=== PATIENT | female | born 1955 | race Caucasian/White ===

== ENCOUNTER 2016-10-27 16:17 | Inpatient (IN) | payer BC ==
[~2016-10-27] VITALS: Ht 170.2 cm; Wt 60.4 kg
[2016-11-11] MEDS: PCA - TOTAL MG MORPHINE DELIVERED PER SHIFT SCH (22:00)
[2016-11-12] VITALS (7 sets, daily range): BP systolic 111–138; BP diastolic 67–80; PULSE 61–77; RESP 16–20; TEMP 97–98.6; O2SAT 97–100
--- NOTE | 2016-11-12 07:31 | PD.HP.UP ---
H&P Update Note The Pre-Admit History and Physical Examination regarding the above named patient was reviewed (including, but not limited to, vital signs, heart, lungs, co-morbid conditions), and upon re-examination it is noted that: the patient's condition has not significantly changed since the last examination. Grisel Mehta MD Nov 12, 2016 07:31
[2016-11-12] MEDS ORDERED: LISI-519 PO (07:32)
[2016-11-12] MEDS ORDERED: LEVO100T5 PO (07:32)
[2016-11-12] MEDS ORDERED: ZOLO100T PO (07:32)
[2016-11-12] MEDS ORDERED: MULT1CHW29 PO (07:34)
[2016-11-12] MEDS ORDERED: ASPI1TAB69 PO (07:35)
[2016-11-12] MEDS ORDERED: SODIUM CHLORID 0.9% 500 ML IV SCH (08:15)
[2016-11-12] MEDS ORDERED: METOPROLOL TARTRATE 25 MG TAB PO PRN (08:15)
[2016-11-12] MEDS ORDERED: INSULIN HUMAN REGULAR 1,000 UNITS/10 ML VIAL SQ PRN (08:15)
[2016-11-12] MEDS ORDERED: LACTATED RINGER'S 1000 ML IV SCH (08:15)
[2016-11-12] MEDS ORDERED: metroNIDAZOLE 500 MG INJ 100 ML IV ONE (08:39)
[2016-11-12] MEDS ORDERED: ceFAZolin 2 GM PREMIX 50 ML ONE (08:39)
[2016-11-12] MEDS ORDERED: DEXT 5%-NACL 0.9% 1000 ML INJ 1,000 ML IV SCH (08:45)
[2016-11-12] MEDS ORDERED: ACETAMINOPHEN 1000 MG/100 ML VIAL IV ONE (08:45)
[2016-11-12] MEDS ORDERED: ceFAZolin 2 GM PREMIX 50 ML IV SCH (08:45)
[2016-11-12] MEDS ORDERED: METRONIDAZOLE 500 MG/100 ML ISONTONIC SOLN IV SCH (08:45)
[2016-11-12] MEDS ORDERED: DEXAMETHASONE SOD PHOS 4 MG/ML VIAL ONE (09:00)
[2016-11-12] MEDS ORDERED: MIDAZOLAM HCL 2 MG/2 ML VIAL ONE (09:00)
[2016-11-12] MEDS ORDERED: ePHEDrine/NS 25 MG/5 ML SYR IV ONE (09:01)
[2016-11-12] MEDS ORDERED: NEOSTIGMINE 3 MG/3 ML SYR IV ONE (09:01)
[2016-11-12] MEDS ORDERED: PROPOFOL 200 MG/20 ML AMP IV ONE (09:01)
[2016-11-12] MEDS ORDERED: NORMOSOL R INJ 3,000 ML IV ONE (09:02)
[2016-11-12] MEDS ORDERED: ONDANSETRON HCL 4 MG/2 ML VIAL IV PUSH ONE (09:02)
--- NOTE | 2016-11-12 10:36 | HHI.PR ---
Immediate Post Op Note Procedure Date: Nov 12, 2016 Pre Op Diagnosis: (1) Rectal prolapse Post Op Diagnosis: (1) Rectal prolapse Surgeon: Nolan Cevallos Waterproofer Helper(s): None Procedure: Cystoscopy and placement of bilateral ureteral catheters Additional Information: Indication for procedure: Consult intraoperatively to place bilateral ureteral catheters to aid in visualization of this patient's ureters during her colorectal procedure. Urologic surgery procedures in detail: Concurrent with Dr. Mehta, I proceeded with cystoscopy and placement of bilateral ureteral catheters as follows: Initially cystoscopic evaluation was performed utilizing the rigid cystoscope with the 30 lens and 20 Estonian sheath. Both right and left ureteral offices were correct anatomic position effluxing clear yellow urine. There were no bladder mucosal lesions, calculi or diverticula formation. I then proceeded with passing a sensor 0.35 wire of the patient's left ureter until a small amount of resistance was met. I then placed a 6 Estonian open- ended ureteral catheter over the wire 25 cm in a cephalad direction. Next the wire was withdrawn and we introduced through a secondary site via the cystoscope and the contralateral side was similarly accomplished. The guidewire was withdrawn, the bladder drained of all irrigant fluid and the cystoscope removed. A 16 Estonian 10 cc Marinelli catheter was placed and both ureteral catheters were anchored to the Marinelli via a connector. All catheters were then placed to gravity drainage. This completes urologic surgery portion of combined procedures on this patient. Anesthesia: General Nolan Cevallos MD Nov 12, 2016 10:36
[2016-11-12] MEDS ORDERED: SODIUM CHLORIDE 0.9% FLUSH 5 ML FLUSH IVF PRN (13:15)
[2016-11-12] MEDS ORDERED: ACETAMINOPHEN 325 MG TAB PO PRN (13:15)
[2016-11-12] MEDS ORDERED: BENZOCAINE 6 MG/MENTHOL 10 MG LOZENGE SUCK-ON PRN (13:15)
[2016-11-12] MEDS ORDERED: ENALAPRILAT 1.25 MG/ML VIAL IV PRN (13:15)
[2016-11-12] MEDS ORDERED: POTASSIUM CHLOR 40 MEQ PREMIX 100 ML IV PRN (13:15)
[2016-11-12] MEDS ORDERED: ONDANSETRON HCL 4 MG/2 ML VIAL IV PRN (13:15)
[2016-11-12] MEDS ORDERED: ACETAMINOPHEN/HYDROcodone 325 MG/5 MG TAB PO PRN (13:15)
[2016-11-12] MEDS ORDERED: NALOXONE HCL 0.4 MG/ML AMP IV PRN (13:15)
[2016-11-12] MEDS ORDERED: ENALAPRILAT 2.5 MG/2 ML VIAL IV PRN (13:15)
[2016-11-12] MEDS ORDERED: POTASSIUM CHLOR 20 MEQ PREMIX 100 ML IV PRN (13:15)
[2016-11-12] MEDS ORDERED: KETOROLAC TROMETHAMINE 30 MG/ML (IVP) VIAL IVP PRN (13:15)
[2016-11-12] MEDS ORDERED: Post-op Orders (for Pharmacy) MISC XX ONE (13:24)
[2016-11-12] MEDS ORDERED: *morphine SULFATE 8 MG/ML PERIprocedure ONLY ONE ×3 (13:40→14:10)
[2016-11-12] MEDS ORDERED: *ONDANSETRON 4 MG VIAL PERIprocedural Use ONLY ONE (13:43)
[2016-11-12] MEDS ORDERED: fentaNYL CITRATE 250 MCG/5 ML AMP ONE (13:44)
[2016-11-12] MEDS: D5-NS + KCL 20 MEQ INJ 1,000 ML IV SCH (14:00)
[2016-11-12] MEDS: SODIUM CHLORIDE 0.9% FLUSH 5 ML FLUSH IVF SCH ×2 (14:00→21:00)
[2016-11-12] MEDS: PCA - TOTAL MG MORPHINE DELIVERED PER SHIFT SCH (14:00)
[2016-11-12] MEDS: MORPHINE SULFATE 30 MG/30 ML PCA IV SCH ×2 (14:03→23:58)
[2016-11-12] MEDS ORDERED: *PROMETHAZINE 25 MG/ML VIAL PERIprocedural use ONLY ONE (14:12)
[2016-11-12 14:19] LABS: AUTOMATED NEUTROPHIL # 8.3 TH/MM3 (1.8-7.7); BASOPHIL % 0.2 % (0.0-2.0); EOSINOPHIL % 0.1 % (0.0-4.0); HEMATOCRIT 34.4 % (35.0-46.0); HEMO FLAGS DIFF FINAL; LYMPH % 13.2 % (9.0-44.0); LYMPHOCYTE # 1.3 TH/MM3 (1.0-4.8); MEAN CELL VOLUME 89.9 FL (80.0-100.0); MEAN CORPUSCULAR HEMOGLOBIN 30.6 PG (27.0-34.0); MEAN CORPUSCULAR HGB CONC 34.1 % (32.0-36.0); MONO % 2.3 % (0.0-8.0); NEUT % 84.2 % (16.0-70.0); PLATELET COUNT 231 TH/MM3 (150-450); RED BLOOD COUNT 3.83 MIL/MM3 (4.00-5.30); RED CELL DISTRIBUTION WIDTH 12.9 % (11.6-17.2); WHITE BLOOD COUNT 9.9 TH/MM3 (4.0-11.0)
[2016-11-12 14:30] LABS: BICARBONATE 23.7 MEQ/L (21.0-32.0); POTASSIUM 3.2 MEQ/L (3.5-5.1)
[2016-11-12] MEDS ORDERED: DO NOT ADM ANY ANTICOAGULANT DRUGS XX PRN (14:30)
[2016-11-12] MEDS ORDERED: *HYDROmorphone PF 1 MG VIAL PERIprocedural Use ONLY ONE (14:38)
[2016-11-12 14:43] LABS: CALCIUM-PROTEIN CORRECTED 7.6 MG/DL (8.5-10.1)
--- NOTE | 2016-11-12 16:04 | EKG ---
Date Performed: 11/12/2016 Time Performed: 08:15:04 PTAGE: 61 years EKG: Sinus rhythm WITH SINUS ARRHYTHMIA MODERATE ST DEPRESSION ABNORMAL ECG NO PREVIOUS TRACING DOCTOR: Osmin Hurst Interpretating Date/Time 11/12/2016 16:03:00
[2016-11-12] MEDS: metroNIDAZOLE 500 MG INJ 100 ML IV SCH (18:31)
[2016-11-12] MEDS: ACETAMINOPHEN/HYDROcodone 325 MG/5 MG TAB PO PRN (21:53)
[2016-11-13] VITALS (7 sets, daily range): BP systolic 104–115; BP diastolic 60–68; PULSE 54–95; RESP 16–21; TEMP 96.8–98.1; O2SAT 95–99
[2016-11-13] MEDS: metroNIDAZOLE 500 MG INJ 100 ML IV SCH ×2 (02:42→09:32)
[2016-11-13] MEDS: D5-NS + KCL 20 MEQ INJ 1,000 ML IV SCH ×5 (02:42→20:26)
[2016-11-13] MEDS: diphenhydrAMINE HCL 50 MG/ML VIAL IV PRN (02:54)
[2016-11-13 04:52] LABS: AUTOMATED NEUTROPHIL # 6.4 TH/MM3 (1.8-7.7); BASOPHIL % 0.3 % (0.0-2.0); EOSINOPHIL # 0.1 TH/MM3 (0-0.4); EOSINOPHIL % 1.1 % (0.0-4.0); HEMATOCRIT 32.6 % (35.0-46.0); HEMO FLAGS DIFF FINAL; LYMPH % 28.8 % (9.0-44.0); MEAN CELL VOLUME 90.8 FL (80.0-100.0); MEAN CORPUSCULAR HEMOGLOBIN 30.2 PG (27.0-34.0); MEAN CORPUSCULAR HGB CONC 33.3 % (32.0-36.0); MONO % 8.2 % (0.0-8.0); NEUT % 61.6 % (16.0-70.0); PLATELET COUNT 212 TH/MM3 (150-450); RED BLOOD COUNT 3.59 MIL/MM3 (4.00-5.30); RED CELL DISTRIBUTION WIDTH 12.9 % (11.6-17.2); WHITE BLOOD COUNT 10.5 TH/MM3 (4.0-11.0)
[2016-11-13 05:11] LABS: BICARBONATE 26.8 MEQ/L (21.0-32.0)
[2016-11-13 05:28] LABS: CALCIUM-PROTEIN CORRECTED 8.1 MG/DL (8.5-10.1)
[2016-11-13] MEDS: PCA - TOTAL MG MORPHINE DELIVERED PER SHIFT SCH ×3 (06:00→22:00)
[2016-11-13] MEDS: SODIUM CHLORIDE 0.9% FLUSH 5 ML FLUSH IVF SCH ×2 (09:00→20:27)
[2016-11-13] MEDS: PANTOPRAZOLE SODIUM 40 MG VIAL IVP SCH (09:31)
[2016-11-13] MEDS: MORPHINE SULFATE 30 MG/30 ML PCA IV SCH ×2 (09:53→20:25)
[2016-11-13] MEDS: HEPARIN SODIUM - SQ 10,000 UNITS/ML VIAL SQ SCH (14:15)
[2016-11-13] MEDS: ACETAMINOPHEN/HYDROcodone 325 MG/5 MG TAB PO PRN (20:26)
[2016-11-14] MEDS: HEPARIN SODIUM - SQ 10,000 UNITS/ML VIAL SQ SCH ×3 (01:00→23:56)
[2016-11-14 04:00] VITALS: BP 118/56; PULSE 73; RESP 20; TEMP 96.2; O2SAT 94
[2016-11-14] MEDS: PCA - TOTAL MG MORPHINE DELIVERED PER SHIFT SCH ×3 (04:20→22:00)
[2016-11-14] MEDS: ACETAMINOPHEN/HYDROcodone 325 MG/5 MG TAB PO PRN ×3 (04:28→19:27)
[2016-11-14] MEDS: PANTOPRAZOLE SODIUM 40 MG VIAL IVP SCH (07:58)
[2016-11-14] MEDS: SODIUM CHLORIDE 0.9% FLUSH 5 ML FLUSH IVF SCH ×2 (07:58→21:00)
[2016-11-14] MEDS: D5-NS + KCL 20 MEQ INJ 1,000 ML IV SCH ×3 (07:58→21:39)
[2016-11-14 08:00] VITALS: BP 121/62; PULSE 64; RESP 17; TEMP 98.5; O2SAT 96
[2016-11-14] MEDS: MORPHINE SULFATE 30 MG/30 ML PCA IV SCH ×2 (08:18→22:16)
[2016-11-14 11:20] LABS: AUTOMATED NEUTROPHIL # 6.5 TH/MM3 (1.8-7.7); BASOPHIL % 0.3 % (0.0-2.0); EOSINOPHIL # 0.1 TH/MM3 (0-0.4); EOSINOPHIL % 1.3 % (0.0-4.0); HEMATOCRIT 31.4 % (35.0-46.0); HEMO FLAGS DIFF FINAL; LYMPH % 28.6 % (9.0-44.0); LYMPHOCYTE # 3.1 TH/MM3 (1.0-4.8); MEAN CELL VOLUME 90.4 FL (80.0-100.0); MEAN CORPUSCULAR HEMOGLOBIN 30.8 PG (27.0-34.0); MEAN CORPUSCULAR HGB CONC 34.1 % (32.0-36.0); MONO % 9.6 % (0.0-8.0); NEUT % 60.2 % (16.0-70.0); PLATELET COUNT 198 TH/MM3 (150-450); RED BLOOD COUNT 3.48 MIL/MM3 (4.00-5.30); RED CELL DISTRIBUTION WIDTH 12.5 % (11.6-17.2); WHITE BLOOD COUNT 10.8 TH/MM3 (4.0-11.0)
[2016-11-14 12:00] VITALS: BP 149/67; PULSE 65; RESP 17; TEMP 98.3; O2SAT 97
[2016-11-14 12:06] LABS: BICARBONATE 28.5 MEQ/L (21.0-32.0); POTASSIUM 3.6 MEQ/L (3.5-5.1)
[2016-11-14 12:24] LABS: CALCIUM-PROTEIN CORRECTED 8.2 MG/DL (8.5-10.1)
[2016-11-14 14:14] VITALS: O2SAT 93
[2016-11-14 16:00] VITALS: BP 130/64; PULSE 58; RESP 17; TEMP 96.5; O2SAT 98
[2016-11-14 20:00] VITALS: BP 125/74; PULSE 87; RESP 20; TEMP 97.6; O2SAT 94
[2016-11-14] MEDS: diphenhydrAMINE HCL 50 MG/ML VIAL IV PRN (21:59)
[2016-11-15] VITALS: BP 130/65; PULSE 83; RESP 21; TEMP 99.2; O2SAT 96
[2016-11-15] MEDS: ACETAMINOPHEN/HYDROcodone 325 MG/5 MG TAB PO PRN ×3 (04:29→17:48)
[2016-11-15] MEDS: D5-NS + KCL 20 MEQ INJ 1,000 ML IV SCH (04:29)
[2016-11-15] MEDS: PCA - TOTAL MG MORPHINE DELIVERED PER SHIFT SCH ×2 (04:30→12:07)
[2016-11-15 05:05] LABS: BASOPHIL % 0.2 % (0.0-2.0); EOSINOPHIL # 0.2 TH/MM3 (0-0.4); EOSINOPHIL % 1.8 % (0.0-4.0); HEMATOCRIT 31.6 % (35.0-46.0); HEMO FLAGS DIFF FINAL; LYMPH % 23.4 % (9.0-44.0); LYMPHOCYTE # 2.5 TH/MM3 (1.0-4.8); MEAN CELL VOLUME 90.2 FL (80.0-100.0); MEAN CORPUSCULAR HEMOGLOBIN 31.1 PG (27.0-34.0); MEAN CORPUSCULAR HGB CONC 34.5 % (32.0-36.0); MONO % 9.5 % (0.0-8.0); NEUT % 65.1 % (16.0-70.0); PLATELET COUNT 203 TH/MM3 (150-450); RED CELL DISTRIBUTION WIDTH 12.7 % (11.6-17.2); WHITE BLOOD COUNT 10.8 TH/MM3 (4.0-11.0)
[2016-11-15 05:16] VITALS: RESP 18
[2016-11-15 05:27] LABS: BICARBONATE 27.3 MEQ/L (21.0-32.0); POTASSIUM 3.6 MEQ/L (3.5-5.1)
[2016-11-15 07:29] VITALS: BP 129/63; PULSE 57; RESP 18; TEMP 97.1; O2SAT 97
[2016-11-15] MEDS: SODIUM CHLORIDE 0.9% FLUSH 5 ML FLUSH IVF SCH (09:00)
[2016-11-15] MEDS: PANTOPRAZOLE SODIUM 40 MG VIAL IVP SCH (09:26)
--- NOTE | 2016-11-15 11:32 | MP ---
cc: SUMA TAYLOR M.D., MARTHA, MD DATE OF SURGERY November 12, 2016 PREOPERATIVE DIAGNOSIS Rectal prolapse. POSTOPERATIVE DIAGNOSES 1. Rectal prolapse. 2. Adhesions. PROCEDURE 1. Laparoscopic lysis of adhesions. 2. Robotic rectosigmoid resection. 3. Rectopexy. SURGEON Tyson WRAP TURNER Gus ANESTHESIA General per ET tube. ESTIMATED BLOOD LOSS 100 cc. OPERATIVE INDICATIONS The patient is a 61-year-old female with symptomatic rectal prolapse. OPERATIVE FINDINGS Lax anal aperture with extremely redundant sigmoid colon, as well as a fairly significant redundancy of her transverse colon. The gallbladder was not visualized. The uterus and ovaries were absent. OPERATIVE COURSE The patient was brought to the operating room, and placed in the supine position. After induction of general anesthesia, the patient was placed in Taran stirrups and all bony prominences were carefully padded. Dr. Cevallos then came in and performed cystoscopy and placement of bilateral ureteral catheters, please see his operative note for details. A site was chosen for the camera, being located 2 cm to the right of the umbilicus. A 10/12 port was placed at this location, under direct vision using the laparoscope. CO2 insufflation was then started and there was nothing noted that would preclude the robotic approach. She was noted to have a few adhesions down to the left lower quadrant but nothing that would keep us from finishing the robotic approach. The remainder of the trocars were then placed as noted. The #1, a 10/12 trocar, was placed in the right lower quadrant just inside the anterior superior iliac spine. The assist port was placed under the right costal margin, equal distance between the camera port and the #1 port. The #3 port was placed in the left anterior axillary line, in line with the umbilicus. The #2 port, an 8 da Sampson, was placed in the left midclavicular line, on the umbilical line. The patient was hydroplaned with the head down and slightly to the right and the small bowel was brought up and out of the pelvis. The patient was immediately noted have massively redundant sigmoid colon and the transverse colon was noted to be fairly redundant as well. This was adherent down to the left lower quadrant. These adhesions were carefully dissected free using electrocautery until we were able to take the transverse colon and reverse it up into the upper peritoneal cavity. The robot was then docked. The sigmoid colon was then retracted down and to the left, and a window in the mesentery on the right was opened. Dissection continued in this plane posterior to the vessels, until the left ureter was clearly identified and swept away from the specimen. A window was then made around the vessels, and a white load Mccool Endostapler was placed across the vasculature at this level. The stapler was closed, held for 30 seconds, fired and removed. Dissection then continued posteriorly, down to the level of the mid-rectum and up and around the right side. The adhesions on the left side had been previously removed with the laparoscope. The sigmoid colon was retracted to the right and the left lateral peritoneal attachments were dissected free down to level of the mid-rectum as well. Eventually we had full mobility of the distal descending, sigmoid colon and proximal and mid-rectum. At this point, a sponge stick was placed in the rectum, and a site was chosen for division of the rectum where it came up nicely to just below the sacral promontory to allow a nice rectopexy and yet a good resection. The mesentery at this level was divided using the harmonic scalpel and the bowel was divided using the Mccool Endostapler, blue load. At this point the 33 EEA stapler was advanced to the anus and up to the rectal stump but did not lie in a good orientation, so I did elect to dissect back an additional 4-5 cm. The mesentery was dissected back an additional 4-5 cm and a reload of the Mccool Endostapler placed across the bowel and closed, held for 30 seconds, fired and removed. The small section of tissue was then removed through the #1 port. The stapler was then advanced again through the anus, and up to the rectal stump, and lay nicely without twisting in a nice orientation. The proximal bowel was brought down and it lay nicely against the proposed anastomosis area without difficulty. All dissection beds were examined. She was noted to have quite a bit of generalized oozing throughout the peritoneal cavity and the robot was undocked. An 8-10 cm transverse incision was made in the suprapubic area, just along the midportion of her previous incision. Using electrocautery, dissection was carried down to the fascia of the anterior abdominal wall which was split. The medial fibers of the rectus abdominis muscles were split, and the posterior fascia/peritoneum was then split the length of the skin incision. A wound retractor was then placed and the proximal stapled end of the bowel was brought up and out through the wound. A site was then chosen for proximal division of the bowel, where it came down nicely to the previous incision. The mesentery at this level was serially divided and ligated using 0 Vicryl ties and a pursestring stapling device was placed across the bowel at this level. The distal bowel was occluded with a Magali clamp and the bowel was divided. The specimen was taken to a back table where it was laid open and no abnormalities were confirmed. The anvil was then placed into the cut end of the bowel, and the previously placed pursestring suture was secured. The bowel, with the anvil, was then reduced back into the peritoneal cavity and the sacral promontory was visualized. A small amount of fibrofatty tissue was cleared from the sacral promontory. The rectopexy sutures were placed as follows: Using a #2-0 Prolene going through the rectal mesentery on the left, through the sacral promontory and back through the mesentery. The suture was then held without tying, using a hemostat. A second suture was placed using 0 Vicryl suture in basically the same conformation. On the right side the Prolene suture was placed in an identical fashion. However, there was noted to be a small hematoma in the rectal mesentery on this side. This was watched for quite awhile. It did not continue to grow and appeared stable throughout the rest of the case. I elected, however, not to place my second Vicryl suture on the right. These sutures were then held while the anastomosis was completed. The 33 EEA stapler was advanced through the anal opening up to the rectal stump without difficulty. The spike was advanced just anterior to the staple line. The anvil was then into the spike, being careful that the bowel was not twisted. The stapler was then closed, being careful not to incorporate any of our rectopexy sutures. The stapler was then held for 30 seconds, fired and removed thus creating an enteroenterotomy. The enterotomy appeared pink and healthy circumferentially and both anastomotic rings were complete. A small amount of warm normal saline was placed into the pelvis and the proximal bowel was occluded with digital pressure. Air was insufflated into the rectum until gentle tension was noted on the anastomosis, with no sign of any leakage noted. The air was desufflated to the extent possible and the saline was suctioned out of the pelvis. Due to her oozing, Maykel was also dusted round in the pelvis posteriorly. Rectopexy sutures were then secured and the bowel lay nicely without tension in a nice orientation, and without extra length. The posterior fascia of the anterior abdominal wall was closed in a running fashion using #1 PDS and the anterior fascia of the anterior abdominal wall closed in running fashion using #1 PDS. The CO2 insufflation was resumed. The fascia at the 10/ 12 trocar site in the right lower quadrant was then closed using the CrossBow device and 0 Vicryl suture. The wounds were copiously irrigated with warm normal saline, and the remainder of the ports were removed after the CO2 was removed from the peritoneal cavity. The skin at the suprapubic incision was closed in a running subcuticular fashion using 3-0 Vicryl and the trocar site skin was closed in an interrupted subcuticular fashion with 3-0 Vicryl. Steri-Strips and sterile dressing was then applied. The right ureteral catheter was then removed. All sponge, needle and sponge counts were correct and the patient was returned to the Post-Anesthesia Care Unit in stable condition. MD SHARON Bingham/NEWTON /1:09 PM /10:59 AM YUNIER
[2016-11-15 12:00] VITALS: BP 110/74; PULSE 65; RESP 17; TEMP 97.7; O2SAT 97
[2016-11-15] MEDS: MORPHINE SULFATE 30 MG/30 ML PCA IV SCH (12:05)
[2016-11-15] MEDS: HEPARIN SODIUM - SQ 10,000 UNITS/ML VIAL SQ SCH (12:08)
--- NOTE | 2016-11-15 13:42 | HHI.PR ---
Subjective Remarks POD#3 robotic resection rectopexy Comfortable, hungry Objective Vital Signs Date Time Temp Pulse Resp B/P Pulse Ox O2 Delivery O2 Flow Rate FiO2 11/15/16 12:00 97.7 65 17 110/74 97 11/15/16 07:29 97.1 57 18 129/63 97 11/15/16 05:16 18 11/15/16 04:30 18 11/15/16 00:00 99.2 83 21 130/65 96 11/14/16 22:16 18 11/14/16 22:00 18 11/14/16 20:00 97.6 87 20 125/74 94 11/14/16 16:00 96.5 58 17 130/64 98 11/14/16 14:14 93 11/14/16 14:00 18 I/O 11/14/16 11/14/16 11/14/16 11/15/16 11/15/16 11/15/16 07:00 15:00 23:00 07:00 15:00 23:00 Intake Total 867 ml 876 ml 1037 ml 732 ml 689 ml Output Total 2400 ml 1400 ml 1200 ml Balance -1533 ml 876 ml -363 ml -468 ml 689 ml Intake Oral 120 ml 480 ml 120 ml IV Total 747 ml 876 ml 557 ml 612 ml 689 ml Output Urine Total 2400 ml 1400 ml 1200 ml # Bowel Movements 0 1 0 Result Diagram: 11/15/16 0348 11/15/16 0348 Objective Remarks soft, nondistended, mildly tender wounds clean Assessment and Plan Assessment and Plan Doing well Home today Grisel Mehta MD Nov 15, 2016 13:42
[2016-11-15] MEDS ORDERED: HYDR-3516 PO (13:44)
--- NOTE | 2017-03-06 21:25 | MD ---
cc: SUMA TAYLOR M.D. ADMISSION DATE: 11/12/2016 DISCHARGE DATE: 11/15/2016 ADMISSION DIAGNOSIS Rectal prolapse. DISCHARGE DIAGNOSIS: Rectal prolapse. PROCEDURES PERFORMED: 1. Cystoscopy with placement of bilateral ureteral catheters. 2. Laparoscopic lysis of adhesions. 3. Robotic rectosigmoid resection. 4. Rectopexy. HOSPITAL COURSE: The patient is a 61-year-old female with symptomatic rectal prolapse. She was admitted to the hospital on November 12, 2016 after an outpatient bowel prep. She underwent the above-named procedures. Intraoperative findings included a lax anal aperture with extremely redundant sigmoid colon, as well as a fairly significant redundancy of transverse colon. Postoperatively the patient did well with rapid return of bowel and bladder function. She was discharged to home on November 15, 2016 with instructions for follow-up with myself in the office. Final pathology showed rectosigmoid colon with chronic inflammation. MD SHARON Bingham/DEYANIRA /1:24 PM /9:23 PM MTDBradly
== END 2016-11-15 18:01 | disposition home or self-care (01) | DRG 330 ==
LOC: HSDI 11-12 06:33 → HCIN 11-12 16:18 → N07A 11-13 22:00
PROVIDERS: ADMIT Colon & Rectal Surgery; ATTEND Colon & Rectal Surgery
PROC: 0DNE4ZZ Release Large Intestine, Percutaneous Endoscopic Approach (ICD-10-PCS; 2016-11-12)
PROC: 0DBP0ZZ Excision of Rectum, Open Approach (ICD-10-PCS; 2016-11-12)
PROC: 8E0W0CZ Robotic Assisted Procedure of Trunk Region, Open Approach (ICD-10-PCS; 2016-11-12)
PROC: 0T9B80Z Drainage of Bladder with Drainage Device, Via Natural or Artificial Opening Endoscopic (ICD-10-PCS; 2016-11-12)
PROC: 0DQP0ZZ Repair Rectum, Open Approach (ICD-10-PCS; principal; 2016-11-12 09:11)
PROC: 0DBN0ZZ Excision of Sigmoid Colon, Open Approach (ICD-10-PCS; 2016-11-12 09:11)
DX: K62.3 Rectal prolapse (principal); Q43.8 Other specified congenital malformations of intestine; I10 Essential (primary) hypertension; K91.61 Intraoperative hemorrhage and hematoma of a digestive system organ or structure complicating a digestive system procedure; K66.0 Peritoneal adhesions (postprocedural) (postinfection); F17.210 Nicotine dependence, cigarettes, uncomplicated; F32.9 Major depressive disorder, single episode, unspecified; Y83.2 Surgical operation with anastomosis, bypass or graft as the cause of abnormal reaction of the patient, or of later complication, without mention of misadventure at the time of the procedure; Y73.3 Surgical instruments, materials and gastroenterology and urology devices (including sutures) associated with adverse incidents; Y92.234 Operating room of hospital as the place of occurrence of the external cause; Z88.0 Allergy status to penicillin
CPT/HCPCS: 80048; 82948; 84155; 85025; 86850; 86900; 86901; 88307; 88309; 93005; 94150; C1769; C9113; J0131; J0690; J1100; J1170; J1200; J1644; J2250; J2270; J2405; J2550; J2710; J3010; J3480; J7042; J7120